=== PATIENT | male | born 1960 ===

== ENCOUNTER 2016-11-24 05:34 | Inpatient (IN) | payer OTHER ==
[2016-11-24] VITALS (22 sets, daily range): BP systolic 109–152; BP diastolic 53–86
[~2016-11-24] VITALS: Ht 167.6 cm; Wt 93.4 kg
[~2016-11-24 05:34] MED LIST: ASPIR 8181 MG ORAL; GLIPIZIDE5 MG ORAL; LISINOPRIL-HCT1 EACH ORAL; METFORMIN HCL1000 M1 ORAL; VITAMIN B122500 MCG PO; VITAMIN B6 PO
[2016-11-24] MEDS ORDERED: Pantoprazole Inj IVP ONE (06:00)
[2016-11-24] MEDS ORDERED: Vancomycin 1gm/D5W 275ml IVPB ONE ×2 (06:00)
[2016-11-24] MEDS ORDERED: Thrombin 5000 units TOPIC ONE (06:27)
[2016-11-24] MEDS ORDERED: Gelfoam Absorbable 1gm powder pkt TOPIC ONE (06:28)
[2016-11-24] MEDS ORDERED: Bupivacaine w/Epi 0.5% 30ml Vial INJ ONE (06:28)
[2016-11-24] MEDS ORDERED: Thrombin 5000 units spray kit TOPIC ONE (06:28)
[2016-11-24] MEDS ORDERED: Bacitracin 50000 Units Vial ONE (06:29)
[2016-11-24] MEDS ORDERED: Vancomycin 1gm inj IVPB ONE (07:01)
--- NOTE | 2016-11-24 07:14 | Anethesia Preoperative Eval ---
Anesthesia Pre-op PMH/ROS General Date of Evaluation: November 24, 2016 Time of Evaluation: 07:09 Anesthesiologist: Johnny ASA Score: ASA 3 Mallampati Score Class I : Soft palate, uvula, fauces, pillars visible Class II: Soft palate, uvula, fauces visible Class III: Soft palate, base of uvula visible Class IV: Only hard plate visible Mallampati Classification: Class III Surgeon: Sushil Diagnosis: Cervical radiculopathy Surgical Procedure: ACDF C5-C6 Anesthesia History: none Family History: no anesthesia problems Allergies: Coded Allergies: No Known Allergies (Unverified , 11/23/16) Medications: see eMAR Past Medical History Cardiovascular: Reports: HTN, Denies: CAD, NM, arrhythmia, other, valve dz Pulmonary: Reports: ANGELICA, Denies: COPD, asthma, other Gastrointestinal/Genitourinary: Reports: GERD, Denies: CRI, ESRD, other Neurologic/Psychiatric: Reports: other - chronic pain, Denies: CVA, TIA, dementia, depression/anxiety Endocrine: Reports: DM - on pills HEENT: Denies: GRIND[place]ONE (L), GRINDSTONE (R), cataract (L), cataract (R), glaucoma, other Hematology/Immune: Denies: DVT, anemia, bleeding disorder, other Musculoskeletal/Integumentary: Denies: DDD, DJD, OA, RA, edema, other Other: obesity PMH Narrative: as above PSxH Narrative: none Anesthesia Pre-op Phys. Exam Physician Exam Last Vital Signs Date Time Temp Pulse Resp B/P Pulse Ox O2 Delivery O2 Flow Rate FiO2 11/24/16 06:23 97.9 93 20 127/84 96 Room Air Constitutional: NAD Neurologic: CN 2-12 intact Cardiovascular: RRR, no M/R/G Respiratory: CTA Gastrointestinal: other - obesity Airway Exam Mallampati Score: Class III MO: full Neck: short ROM: limited Teeth: intact Dentures: no lower, no upper Anesthesia Pre-op A/P Labs see chart Accucheck 183 at admission Studies Pre-op Studies: EKG - NSR, CXR - WNl Risk Assessment & Plan Assessment: ASA 3 Plan: GA with ETT neuromonitoring Status Change Before Surgery: No Pre-Antibiotics Drug: Vancomycin 1gr. Given Within 1 Hr of Incision: Yes Time Given: 07:30 CHAU PIÑA M.D. November 24, 2016 07:14
[2016-11-24] MEDS ORDERED: fentaNYL 100 mcg/2 mL IV ONE (07:30)
[2016-11-24] MEDS ORDERED: Midazolam 2mg/2ml Inj ONE (07:30)
[2016-11-24] MEDS ORDERED: Propofol 10mg/ml 100ml btl IV ONE (07:30)
[2016-11-24] MEDS ORDERED: Sterile Water Irrig 1000ml IRRIG ONE (07:30)
[2016-11-24] MEDS ORDERED: Zemuron 50mg/5ml Inj IV ONE (07:30)
[2016-11-24] MEDS ORDERED: Succinylcholine 20mg/ml 10ml vial ONE (07:30)
[2016-11-24] MEDS ORDERED: Dexamethasone 4mg/ml vial ONE (07:30)
[2016-11-24] MEDS ORDERED: NS Irrig 1000ml ONE (07:30)
[2016-11-24] MEDS ORDERED: Glycopyrrolate 0.2mg/ml 1ml Vial ONE (07:30)
[2016-11-24] MEDS ORDERED: Neostigmine 1mg/ml 10ml Inj ONE (07:30)
[2016-11-24] MEDS ORDERED: LR 1000ml ONE (07:30)
[2016-11-24] MEDS ORDERED: Phenylephrine 10mg/ml Vial ONE (07:30)
--- NOTE | 2016-11-24 07:39 | Pre-Procedure Note/Attestation ---
Pre-Procedure Note/Attestation Complete Prior to Procedure Planned Procedure: bilateral Procedure Narrative: Anterior cervical decompression, partial corpectomy and interbody fusion with PEEK spacer, allograft, autograft vs structural allograft, and use of iliac crest bone marrow aspiration for the cervical 5-6, with neuromonitoring Attestation I attest that I discussed the nature of the procedure; its benefits; risks and complications; and alternatives (and the risks and benefits of such alternatives ), prior to the procedure, with the patient (or the patient's legal rental sales representative). I attest that, if there was a reasonable possibility of needing a blood transfusion, the patient (or the patient's legal rental sales representative) was given the [place] Department [employer] Services standardized written summary, pursuant to the [place] Blood Safety Act ([place] Health and Safety Code # 1645, as amended). I attest that I re-evaluated the patient just prior to the surgery and that there has been no change in the patient's H&P, except as documented below: AMISHA YOUNGBLOOD November 24, 2016 07:39
[2016-11-24] MEDS ORDERED: LR 1000ml 1,000 ML IVLG SCH (09:26)
[2016-11-24] MEDS ORDERED: fentaNYL 100 mcg/2 mL IV PRN (09:30)
[2016-11-24] MEDS ORDERED: DiphenhydrAMINE 50mg/ml Inj IVP PRN (09:30)
[2016-11-24] MEDS ORDERED: Ketorolac 30mg Inj IV PRN (09:30)
[2016-11-24] MEDS ORDERED: Midazolam 2mg/2ml Inj IVP PRN (09:30)
[2016-11-24] MEDS ORDERED: Propofol 10mg/ml 20ml IV ONE (09:48)
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
--- NOTE | 2016-11-24 11:46 | Diagnostic Imaging Report ---
Indications: Neck pain, cervical discectomy and anterior fusion Technique: Above procedure including fluoroscopy performed by Dr. Ling. Portable intraoperative AP and lateral spot film images of the cervical spine performed. Findings: Comparison: None Initial images demonstrate paper clip overlying first C4-5 disc space, then the C5-6 disc space. Subsequent images demonstrate placement of fusion hardware within and across the anterior margin of the C5-6 disc space. IMPRESSION: Intraoperative changes as described
--- NOTE | 2016-11-24 11:52 | General Progress Note ---
Progress Note Progress Note Neurosugery Post-op check S/ comfortable O/ Vsnl sat 99% Alert responsive Moveas all extremities well incisions are dry. doing well admit family informed AMISHA YOUNGBLOOD November 24, 2016 11:52
[2016-11-24] MEDS: Hydromorphone 0.5mg/0.5ml inj IVP PRN ×4 (11:56→13:38)
--- NOTE | 2016-11-24 13:24 | Immediate Post-Op Evaluation ---
Immediate Post-Op Evalulation Immediate Post-Op Evalulation Procedure: ACDF C5-C6 Date of Evaluation: November 24, 2016 Time of Evaluation: 11:20 IV Fluids: 1200 Blood Products: none Estimated Blood Loss: 50 Urinary Output: 150 Blood Pressure Systolic: 117 Blood Pressure Diastolic: 58 Pulse Rate: 76 Respiratory Rate: 22 O2 Sat by Pulse Oximetry: 97 Temperature (Fahrenheit): 97.5 Pain Score (1-10): 1 Nausea: No Vomiting: No Complications none Patient Status: reacts, patent, extubated, none Hydration Status: adequate CHAU PIÑA M.D. November 24, 2016 13:24
[2016-11-24] MEDS ORDERED: Naloxone 0.4mg/ml Inj IVP ONE (14:50)
[2016-11-24] MEDS ORDERED: HYDROmorphone 1mg/ml Carpuject IVP PRN (17:00)
[2016-11-24] MEDS ORDERED: Milk of Magnesia 30ml Ud ORAL PRN (17:00)
[2016-11-24] MEDS ORDERED: Norco 7.5mg/325mg tab ORAL PRN ×2 (17:00)
[2016-11-24] MEDS ORDERED: Vitamin B-12 500mcg tab ORAL ONE (17:15)
[2016-11-24 19:00] LABS: APPEARANCE,URINE CLEAR; KETONES,URINE NEGATIVE (NEGATIVE); LEUKOCYTE ESTERASE ,URINE NEGATIVE (NEGATIVE); NITRITE,URINE NEGATIVE (NEGATIVE); PH,URINE 6 (4.5-8.0); PROTEIN,URINE 1+ (NEGATIVE); UROBILINOGEN,URINE NORMAL MG/DL (0.0-1.0)
[2016-11-24] MEDS: 1/2NS w/KCl 20mEq 1000ml 1,000 ML IV SCH (19:02)
[2016-11-24] MEDS: Metoclopramide 10mg/2ml Inj IVP SCH (19:04)
[2016-11-24] MEDS: Docusate 100mg cap ORAL SCH (19:04)
[2016-11-24 19:35] LABS: BACTERIA,URINE FEW /HPF; WBC,URINE 0-2 /HPF (0 - 0)
--- NOTE | 2016-11-24 20:18 | History and Physical Report ---
DATE OF ADMISSION: 11/24/2016 HISTORY OF PRESENT ILLNESS: This is a 56-year-old male, status post cervical spine fusion was transferred to upstairs to the floor he was snoring who comes in slightly sedated. I was in the floor when the patient came in. I went in his room. He is slightly sedated and arousable with minimum nauseous stimuli. Family by beside. Subsequently, he kept falling asleep and snoring. He was placed on oxygen coming from PACU and he is saturating okay. He was given 0.2 mg of Narcan. vitals were stable minimally rewposive cta s1,s2,rrr moved all 4 extremity with nausios stimuli HE WILL BE PLACED ON CPAP, PRESSURE SUPPORT OF 12, 40% FIO2. HE WILL BE TRANSFERRED TO A MONITORED BED TO FOLLOW HIIM HE GETS RESPIRATORY DEPRESSION FROM PROBABLE OBSTRUCTIVE SLEEP APNEA. WE WILL MONITOR HIM CLOSELY. THE FOLLOWING WILL BE DONE: 1. I will send him to a monitored bed. 2. Continuous pulse oximetry. 3. CPAP, pressure support of 12, 40% FiO2 . 4. For pain medication Tylenol 650 every six hours. 5. Accu-Chek sliding scale. 6.ADA diet For now, the diet for the next two hours to be NPO. After that, clear liquid for tonight, clear liquid ADA, and as tomorrow will be on ADA diet. We will follow the patient closely. Accu-Chek sliding scale. We will resume his diabetic medications in the morning. DVT prophylaxis with sequential compression stockings as well as SCDs. Riley Forbes M.D. DR: INEZ JOB#: [id number] CC: ABBIE
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
[2016-11-24] MEDS: NovoLOG Insulin Flexpen SUBQ SCH (22:11)
[2016-11-24] MEDS: Vancomycin 1 GM in D5W 275 ML IVPB SCH (22:16)
[2016-11-24] MEDS: Zolpidem 5mg tab ORAL PRN (22:17)
[2016-11-25 00:11] VITALS: BP 115/73
[2016-11-25] MEDS: 1/2NS w/KCl 20mEq 1000ml 1,000 ML IV SCH ×2 (03:56→13:02)
[2016-11-25 04:30] VITALS: BP 137/75
[2016-11-25] MEDS: NovoLOG Insulin Flexpen SUBQ SCH ×4 (05:28→21:38)
[2016-11-25] MEDS ORDERED: metFORMIN 500mg tab ORAL SCH (06:30)
[2016-11-25] MEDS ORDERED: GlipiZIDE 5mg tab ORAL SCH (06:30)
[2016-11-25 08:00] VITALS: BP 135/78
[2016-11-25 08:11] LABS: BASOPHILS % (AUTO) 0.2 % (0.0-2.0); EOSINOPHILS % (AUTO) 0.3 % (0.0-3.0); LYMPHOCYTES % (AUTO) 13.3 % (20.0-45.0); MEAN CORPUSCULAR HEMOGLOBIN 27.7 PG (27.0-31.0); MEAN CORPUSCULAR HGB CONC 32.5 G/DL (32.0-36.0); MEAN CORPUSCULAR VOLUME 85 FL (80-99); MEAN PLATELET VOLUME 6.7 FL (6.5-10.1); NEUTROPHILS % (AUTO) 77.2 % (45.0-75.0); PLATELET COUNT 271 K/UL (150-450); RED BLOOD COUNT 4.12 M/UL (4.70-6.10); RED CELL DISTRIBUTION WIDTH 12.9 % (11.6-14.8); WHITE BLOOD COUNT 9.3 K/UL (4.8-10.8)
[2016-11-25 08:21] LABS: ALANINE AMINOTRANSFERASE 37 U/L (3-41); ALBUMIN/GLOBULIN RATIO 1.9 (1.0-2.7); ANION GAP 12 (5-15); ASPARTATE AMINO TRANSFERASE 22 U/L (5-40); CALCIUM 9.3 mg/dL (8.6-10.2); CARBON DIOXIDE 29 mEQ/L (20-30); CHLORIDE 97 mEQ/L (98-107); GLOMERULAR FILTRATION RATE > 60 mL/min (>60); HEMOLYSIS 12; MAGNESIUM 1.8 mg/dL (1.7-2.5); SODIUM 138 mEQ/L (135-145); TOTAL PROTEIN 5.9 g/dL (6.6-8.7)
--- NOTE | 2016-11-25 08:27 | General Progress Note ---
Progress Note Progress Note Neurosurgery POD #1 S/ Feeling well. Had urinary retention yesterday pm, sánchez reinserted. feeling much better. Left arm stronger with increased sensation. O/ Vs: Last 24 Hour Vital Signs Date Time Temp Pulse Resp B/P Pulse Ox O2 Delivery O2 Flow Rate FiO2 11/25/16 06:21 97.0 11/25/16 04:30 97.0 84 20 137/75 96 Room Air 11/25/16 04:00 76 11/25/16 00:11 97.0 100 20 115/73 96 Room Air 11/25/16 00:00 103 11/24/16 22:56 102 11/24/16 21:00 97 Nasal Cannula 3.0 32 11/24/16 21:00 Nasal Cannula 3.0 32 11/24/16 20:31 97.2 99 20 124/81 97 Room Air 11/24/16 16:26 98.1 11/24/16 16:24 98.1 11/24/16 16:00 97.7 92 20 127/86 95 Room Air 11/24/16 14:52 98.1 90 21 118/72 94 Bi-pap 11/24/16 14:35 98.0 89 14 132/70 96 Nasal Cannula 3.0 11/24/16 14:20 98.0 87 14 149/82 96 Nasal Cannula 3.0 11/24/16 14:06 89 14 149/82 96 Nasal Cannula 3.0 11/24/16 14:00 76 14 141/73 96 Nasal Cannula 3.0 11/24/16 13:38 79 14 152/66 96 Nasal Cannula 3.0 11/24/16 13:24 76 22 97 11/24/16 13:15 97.0 11/24/16 13:10 76 14 141/73 96 Nasal Cannula 3.0 11/24/16 13:03 97.0 73 14 139/73 96 Nasal Cannula 3.0 11/24/16 13:00 79 14 149/77 96 Nasal Cannula 3.0 11/24/16 12:54 70 14 149/77 96 Nasal Cannula 3.0 11/24/16 12:35 86 14 143/68 96 Nasal Cannula 3.0 11/24/16 12:15 66 14 148/60 96 Nasal Cannula 3.0 11/24/16 12:05 65 16 131/74 95 Nasal Cannula 3.0 11/24/16 11:50 69 15 123/61 96 Nasal Cannula 3.0 11/24/16 11:45 95 16 124/59 95 Nasal Cannula 3.0 11/24/16 11:30 60 18 115/59 94 Simple Mask 8.0 11/24/16 11:26 56 18 126/58 94 Simple Mask 8.0 11/24/16 11:21 59 18 109/53 94 Simple Mask 8.0 11/24/16 11:16 97.0 58 18 117/54 94 Simple Mask 8.0 On exam, Alert and oriented x 4. pleasant, in good spirits. Left arm strength significantly improved incisions dressing clean and dry Labs: Laboratory Tests Test 11/24/16 17:00 11/25/16 06:32 Urine Color Pale yellow Urine Appearance Clear Urine pH 6 (4.5-8.0) Urine Specific [place] 1.010 (1.005-1.035) Urine Protein 1+ (NEGATIVE) H Urine Glucose (UA) 4+ (NEGATIVE) H Urine Ketones Negative (NEGATIVE) Urine Occult Blood 4+ (NEGATIVE) H Urine Nitrite Negative (NEGATIVE) Urine Bilirubin Negative (NEGATIVE) Urine Urobilinogen Normal MG/DL (0.0-1.0) Urine Leukocyte Esterase Negative (NEGATIVE) Urine RBC 10-15 /HPF (0 - 0) H Urine WBC 0-2 /HPF (0 - 0) Urine Squamous Epithelial Cells None /LPF (NONE/OCC) Urine Bacteria Few /HPF (NONE) White Blood Count 9.3 K/UL (4.8-10.8) Red Blood Count 4.12 M/UL (4.70-6.10) L Hemoglobin 11.4 G/DL (14.2-18.0) L Hematocrit 35.0 % (42.0-52.0) L Mean Corpuscular Volume 85 FL (80-99) Mean Corpuscular Hemoglobin 27.7 PG (27.0-31.0) Mean Corpuscular Hemoglobin Concent 32.5 G/DL (32.0-36.0) Red Cell Distribution Width 12.9 % (11.6-14.8) Platelet Count 271 K/UL (150-450) Mean Platelet Volume 6.7 FL (6.5-10.1) Neutrophils (%) (Auto) 77.2 % (45.0-75.0) H Lymphocytes (%) (Auto) 13.3 % (20.0-45.0) L Monocytes (%) (Auto) 9.0 % (1.0-10.0) Eosinophils (%) (Auto) 0.3 % (0.0-3.0) Basophils (%) (Auto) 0.2 % (0.0-2.0) Sodium Level 138 mEQ/L (135-145) Potassium Level 4.0 mEQ/L (3.4-4.9) Chloride Level 97 mEQ/L (98-107) L Carbon Dioxide Level 29 mEQ/L (20-30) Anion Gap 12 (5-15) Blood Urea Nitrogen 12 mg/dL (7-23) Creatinine 1.0 mg/dL (0.7-1.2) Estimat Glomerular Filtration Rate > 60 mL/min (>60) Glucose Level 194 mg/dL (74-106) H Calcium Level 9.3 mg/dL (8.6-10.2) Magnesium Level 1.8 mg/dL (1.7-2.5) Total Bilirubin 0.3 mg/dL (0.0-1.2) Aspartate Amino Transf (AST/SGOT) 22 U/L (5-40) Alanine Aminotransferase (ALT/SGPT) 37 U/L (3-41) Alkaline Phosphatase 58 U/L (40-129) Total Protein 5.9 g/dL (6.6-8.7) L Albumin 3.9 g/dL (3.5-5.2) Globulin 2.0 g/dL Albumin/Globulin Ratio 1.9 (1.0-2.7) doing well flomax and voiding trial PT/ot d/c planning AMISHA YOUNGBLOOD November 25, 2016 08:27
[2016-11-25] MEDS: GlipiZIDE 5mg tab ORAL SCH ×3 (09:00→17:04)
[2016-11-25] MEDS ORDERED: Tamsulosin 0.4mg cap ORAL ONE (09:00)
[2016-11-25] MEDS ORDERED: Lisinopril 10mg tab ORAL SCH (09:00)
[2016-11-25] MEDS: Lisinopril 20mg tab ORAL SCH (09:08)
[2016-11-25] MEDS: Docusate 100mg cap ORAL SCH ×2 (09:08→17:06)
[2016-11-25] MEDS: Vancomycin 1 GM in D5W 275 ML IVPB SCH (09:08)
[2016-11-25] MEDS: Metoclopramide 10mg/2ml Inj IVP SCH ×2 (09:09→12:01)
[2016-11-25] MEDS: metFORMIN 500mg tab ORAL SCH ×2 (09:11→17:04)
[2016-11-25 11:37] VITALS: BP 131/85
[2016-11-25] MEDS ORDERED: Tubing IV Secondary IV ONE (15:25)
[2016-11-25 16:00] VITALS: BP 131/88
--- NOTE | 2016-11-25 19:26 | General Progress Note ---
Assessment/Plan Status Narrative s/p psine fusion postop sedation delmi diiabetes hyeprteniosn obesity Assessment/Plan pt ot dvt prophyalix s blod sugar xcontrol will monito r. Subjective Date patient seen: November 25, 2016 Constitutional: Reports: no symptoms HEENT: Reports: no symptoms Cardiovascular: Reports: no symptoms Respiratory: Reports: no symptoms Allergies: Coded Allergies: No Known Allergies (Unverified , 11/23/16) Objective Last 24 Hour Vital Signs Date Time Temp Pulse Resp B/P Pulse Ox O2 Delivery O2 Flow Rate FiO2 11/25/16 16:00 98.8 71 22 131/88 98 Room Air 11/25/16 16:00 98.8 71 22 131/88 98 Room Air 11/25/16 12:00 74 11/25/16 11:37 97.3 73 21 131/85 98 Nasal Cannula 3.0 11/25/16 09:08 137/75 11/25/16 08:00 91 11/25/16 08:00 98.1 93 22 135/78 98 Nasal Cannula 3.0 11/25/16 07:49 98 Nasal Cannula 3.0 11/25/16 07:48 Nasal Cannula 3.0 11/25/16 06:21 97.0 11/25/16 04:30 97.0 84 20 137/75 96 Room Air 11/25/16 04:00 76 11/25/16 00:11 97.0 100 20 115/73 96 Room Air 11/25/16 00:00 103 11/24/16 22:56 102 11/24/16 21:00 97 Nasal Cannula 3.0 32 11/24/16 21:00 Nasal Cannula 3.0 32 11/24/16 20:31 97.2 99 20 124/81 97 Room Air Intake and Output 11/24/16 11/25/16 19:00 07:00 Intake Total 2200 ml 1100 ml Output Total 1200 ml 4000 ml Balance 1000 ml -2900 ml Intake Oral 200 ml 400 ml IV Total 2000 ml 700 ml Output Urine Total 1150 ml 4000 ml Estimated Blood Loss 50 ml Laboratory Tests 11/25/16 06:32: White Blood Count 9.3, Red Blood Count 4.12L, Hemoglobin 11.4L, Hematocrit 35.0L , Mean Corpuscular Volume 85, Mean Corpuscular Hemoglobin 27.7, Mean Corpuscular Hemoglobin Concent 32.5, Red Cell Distribution Width 12.9, Platelet Count 271, Mean Platelet Volume 6.7, Neutrophils (%) (Auto) 77.2H, Lymphocytes ( %) (Auto) 13.3L, Monocytes (%) (Auto) 9.0, Eosinophils (%) (Auto) 0.3, Basophils (%) (Auto) 0.2, Sodium Level 138, Potassium Level 4.0, Chloride Level 97L, Carbon Dioxide Level 29, Anion Gap 12, Blood Urea Nitrogen 12, Creatinine 1.0, Estimat Glomerular Filtration Rate > 60, Glucose Level 194H, Calcium Level 9.3, Magnesium Level 1.8, Total Bilirubin 0.3, Aspartate Amino Transf (AST/SGOT ) 22, Alanine Aminotransferase (ALT/SGPT) 37, Alkaline Phosphatase 58, Total Protein 5.9L, Albumin 3.9, Globulin 2.0, Albumin/Globulin Ratio 1.9 Height (Feet): 5 Height (Inches): 6.00 Weight (Pounds): 206 General Appearance: WD/WN Neck: other - wearinfg sof tcervical collar Cardiovascular: normal rate, regular rhythm, no JVD Respiratory/Chest: lungs clear Abdomen: soft RICHARD JAMES November 25, 2016 19:26
[2016-11-25 20:28] VITALS: BP 137/99
[2016-11-25] MEDS ORDERED: Tamsulosin 0.4mg cap ORAL SCH (21:00)
[2016-11-25] MEDS: Zolpidem 5mg tab ORAL PRN (21:37)
[2016-11-26] MEDS: 1/2NS w/KCl 20mEq 1000ml 1,000 ML IV SCH
[2016-11-26 00:02] VITALS: BP 142/84
[2016-11-26 04:03] VITALS: BP 131/83
[2016-11-26] MEDS: NovoLOG Insulin Flexpen SUBQ SCH (06:04)
[2016-11-26 08:00] VITALS: BP 127/91
[2016-11-26] MEDS: Docusate 100mg cap ORAL SCH (08:15)
[2016-11-26] MEDS: metFORMIN 500mg tab ORAL SCH (08:16)
[2016-11-26] MEDS: GlipiZIDE 5mg tab ORAL SCH (08:17)
[2016-11-26] MEDS: Lisinopril 20mg tab ORAL SCH (08:17)
[2016-11-26 09:50] VITALS: BP 128/72
--- NOTE | 2016-11-26 09:50 | 48 Hour Post Anesthesia Eval ---
Post Anesthesia Evaluation Procedure: ACDF C5-C6 Date of Evaluation: November 26, 2016 Time of Evaluation: 09:49 Blood Pressure Systolic: 128 0: 72 Pulse Rate: 76 Respiratory Rate: 22 Temperature (Fahrenheit): 97.6 O2 Sat by Pulse Oximetry: 98 Airway: patent Nausea: No Vomiting: No Pain Intensity: 3 Cardiopulmonary Status: stable Mental Status/LOC: patient returned to baseline Follow-up Care/Observations: n/a Post-Anesthesia Complications: none Follow-up care needed: N/A CHAU PIÑA M.D. November 26, 2016 09:50
--- NOTE | 2016-11-26 10:13 | General Progress Note ---
Progress Note Progress Note NSG POD #2 S/Pain well controlled. Voiding and ambulating. Left arm stronger with more sensation. O/ VS: Last 24 Hour Vital Signs Date Time Temp Pulse Resp B/P Pulse Ox O2 Delivery O2 Flow Rate FiO2 11/26/16 09:50 76 22 98 11/26/16 08:17 127/91 11/26/16 08:00 98.6 100 20 127/91 98 Room Air 11/26/16 08:00 118 11/26/16 04:26 97.8 11/26/16 04:03 97.8 70 20 131/83 94 Room Air 11/26/16 04:00 71 11/26/16 00:15 97.3 11/26/16 00:02 97.3 83 19 142/84 95 Room Air 11/26/16 00:00 91 11/25/16 20:28 98.4 86 20 137/99 96 Room Air 11/25/16 19:05 97 Nasal Cannula 3.0 11/25/16 19:05 Nasal Cannula 3.0 11/25/16 16:00 98.8 71 22 131/88 98 Room Air 11/25/16 16:00 90 11/25/16 16:00 98.8 71 22 131/88 98 Room Air 11/25/16 12:00 74 11/25/16 11:37 97.3 73 21 131/85 98 Nasal Cannula 3.0 post void residual is Zero Alert and oriented normal voice motor exam shows significant improvement in the left upper extremity strength. able to ambulate independently incisions completely dry doing well D/c home d/c instructions d/w pt and nursing. AMISHA YOUNGBLOOD November 26, 2016 10:13
--- NOTE | 2016-11-27 08:38 | Discharge Summary ---
DATE OF ADMISSION: 11/24/2016 DATE OF DISCHARGE: 11/26/2016 DISCHARGE DIAGNOSIS: Status post anterior cervical partial corpectomy, C5 and C6 interbody graft and plate arthrodesis. HISTORY OF PRESENT ILLNESS: Please refer to the chart for detailed History and Physical. HOSPITAL COURSE: The patient was admitted on 11/24/2016. He underwent uneventful anterior cervical decompressive surgery for severe cord compression, partial corpectomy of C5 and C6 interbody graft and plate arthrodesis. He has done well postoperatively. He is ambulating. He is voiding with no postvoid residual. He is being discharged home with appropriate discharge instructions. DISPOSITION: Home. DISCHARGE INSTRUCTIONS: The patient has been instructed to continue with his diabetic medication. He is asked not to take any NSAIDs. He is able to take Tylenol as needed. The patient is to maintain cervical collar at all times except for showering. In case of fever, chills, or drainage from the incision, the patient is to contact Dr. Ling or go to the nearest ER. Follow up with Dr. Ling in 2 weeks. DISPOSITION: Home. DIET: Diabetic diet, low-carb and high-protein. ACTIVITY LEVEL: The patient is asked to wear a cervical soft collar at all times. He lift more than 5 pounds on an occasional basis. COMPLICATIONS: None. CONSULTATION: Include Dr. Riley Forbes, Internal Medicine. Haley Ling M.D. DR: Saúl JOB#: [id number] CC:
== END 2016-11-26 11:30 | disposition home or self-care (01) | DRG 473 ==
LOC: SDSOVERFLO 05:34 → 3E 13:22 → 2E 16:17
PROC: 07DR3ZZ Extraction of Iliac Bone Marrow, Percutaneous Approach (ICD-10-PCS; principal; 2016-11-24 07:00)
PROC: 0RG10A0 Fusion of Cervical Vertebral Joint with Interbody Fusion Device, Anterior Approach, Anterior Column, Open Approach (ICD-10-PCS; principal; 2016-11-24 07:00)
PROC: 0RT30ZZ Resection of Cervical Vertebral Disc, Open Approach (ICD-10-PCS; principal; 2016-11-24 07:00)
DX: M50.022 Cervical disc disorder at C5-C6 level with myelopathy (principal); E66.01 Morbid (severe) obesity due to excess calories; M75.42 Impingement syndrome of left shoulder; M50.122 Cervical disc disorder at C5-C6 level with radiculopathy; G47.33 Obstructive sleep apnea (adult) (pediatric); E11.9 Type 2 diabetes mellitus without complications; R06.83 Snoring; I10 Essential (primary) hypertension; R33.9 Retention of urine, unspecified
CPT/HCPCS: 36415; 72020; 76001; 80053; 81001; 82962; 83735; 85025; 86850; 86900; 86901; 87081; 87086; 94003; 94150; 94760; J1580; J1815; J2250; J2370; J2710; J2765